=== PATIENT | female | born 1945 | race Hispanic/Latino ===

== ENCOUNTER 2018-02-26 14:03 | Inpatient (IN) | payer OTHER, MEDICARE ==
[~2018-02-26] VITALS: Ht 162.6 cm; Wt 61.8 kg
[2018-02-26 14:45] LABS: LYMPHOCYTES % (AUTO) 14.9 % (21.0-51.0); MEAN CORPUSCULAR HEMOGLOBIN 33.5 pg (27.0-33.0); MEAN CORPUSCULAR HGB CONC 34.5 g/dL (32.0-36.0); MEAN CORPUSCULAR VOLUME 97.1 fL (79-99); MONOCYTES % (AUTO) 18.6 % (3.0-13.0); NEUTROPHILS % (AUTO) 62.5 % (40.0-77.0); NUCLEATED RED BLOOD CELLS 0.1 % (0.0-0.19); PLATELET COUNT (AUTO) 95 K/uL (130-400); RED CELL DISTRIBUTION WIDTH 13.5 % (11.0-15.5); WHITE BLOOD COUNT (AUTO) 4.3 K/uL (4.8-10.8)
[2018-02-26 15:08] LABS: ALBUMIN 3.5 g/dL (3.5-5.0); BILIRUBIN,TOTAL 0.5 mg/dL (0.2-1.0); MAGNESIUM 2.4 mg/dL (1.80-2.40); POTASSIUM 4.7 mmol/L (3.5-5.1); TOTAL PROTEIN, SERUM 7.6 g/dL (6.0-8.3)
[2018-02-26 15:12] LABS: CREATININE 9.6 mg/dL (0.5-1.5)
[2018-02-26] MEDS ORDERED: SODIUM CHLORIDE 0.9% 500ML 500 ML IV ONE (15:57)
[2018-02-26] MEDS ORDERED: ONDANSETRON HCL 4 MG/2 ML VIAL ONE (15:57)
[2018-02-26 16:22] LABS: CREATINE KINASE, TOTAL 100 U/L (21-232); MYOGLOBIN 293 ng/mL (10-92); TROPONIN I < 0.04 ng/mL (0.00-0.06)
[2018-02-26] MEDS: PANTOPRAZOLE SODIUM 40 MG TABLET.DR PO SCH (16:54)
[2018-02-26] MEDS ORDERED: MORPHINE SULFATE 4 MG/1ML SYG ONE (17:19)
[2018-02-26] MEDS: INSULIN R PO SS1 SQ SCH (21:00)
[2018-02-26 22:05] VITALS: BP 160/70
[2018-02-26] MEDS ORDERED: ACYC800T PO (22:32)
[2018-02-26] MEDS ORDERED: LEVO88TA7 PO (22:32)
[2018-02-26] MEDS ORDERED: HYDR-4153 PO (22:32)
[2018-02-26] MEDS ORDERED: SEVE800T7 PO (22:32)
[2018-02-26] MEDS ORDERED: ASPI-555 PO (22:32)
[2018-02-26] MEDS ORDERED: UMEC1DIS IH (22:32)
[2018-02-26] MEDS ORDERED: LOSA100T29 PO (22:32)
[2018-02-26] MEDS ORDERED: BUSP5TAB3 PO (22:32)
[2018-02-26] MEDS ORDERED: SIMV40TA59 PO (22:32)
[2018-02-26] MEDS ORDERED: OMEP40CA37 PO (22:32)
[2018-02-26] MEDS ORDERED: AMLO5TAB2 PO (22:32)
[2018-02-26] MEDS ORDERED: CARV12.511 PO (22:32)
[2018-02-26] MEDS ORDERED: FOLI1TAB85 PO (22:32)
[2018-02-26] MEDS ORDERED: DICY10CA13 PO (22:32)
[2018-02-27] VITALS: BP 166/81
[2018-02-27] MEDS ORDERED: PHARMACY COMMUNICATION MISC SCH (00:15)
[2018-02-27 04:00] VITALS: BP 160/74
[2018-02-27] MEDS: INSULIN R PO SS1 SQ SCH ×4 (06:06→21:00)
[2018-02-27] MEDS ORDERED: 0.9% SODIUM CHLORIDE 250 ML IV BAG IV PRN (07:30)
[2018-02-27] MEDS ORDERED: ALBUMIN (HUMAN) 25% 100 ML IV PRN (07:30)
[2018-02-27] MEDS ORDERED: SODIUM CHLORIDE 0.9% 1000ML 1,000 ML IV PRN (07:30)
[2018-02-27 08:00] VITALS: BP 188/97
[2018-02-27] MEDS ORDERED: COMPOUND IV REFRIGERATED 1 EACH IVSOLN MISC PRN (10:00)
[2018-02-27] MEDS ORDERED: BUSPIRONE HCL 5 MG TABLET PO PRN (10:30)
[2018-02-27 11:00] VITALS: BP 184/92
[2018-02-27] MEDS: PANTOPRAZOLE SODIUM 40 MG TABLET.DR PO SCH (11:02)
[2018-02-27] MEDS: EPOETIN ALFA 2,000 UNIT/ML VIAL SQ SCH (11:03)
[2018-02-27] MEDS: SEVELAMER HCL 800 MG TABLET PO SCH ×2 (12:44→17:48)
[2018-02-27] MEDS: HYDRALAZINE HCL 25 MG TABLET PO SCH ×3 (12:44→21:09)
[2018-02-27 16:00] VITALS: BP 167/81
[2018-02-27] MEDS: DICYCLOMINE HCL 20 MG TAB PO SCH ×2 (17:47→21:08)
[2018-02-27] MEDS: VALACYCLOVIR HCL 500 MG TABLET PO SCH (17:47)
[2018-02-27 20:00] VITALS: BP 168/80
[2018-02-27] MEDS: CARVEDILOL 12.5 MG TABLET PO SCH (21:09)
[2018-02-27] MEDS: ATORVASTATIN CALCIUM 20 MG TABLET PO SCH (21:09)
[2018-02-28] VITALS (7 sets, daily range): BP systolic 121–148; BP diastolic 53–84
[2018-02-28] MEDS: INSULIN R PO SS1 SQ SCH ×4 (06:08→21:00)
[2018-02-28] MEDS: PANTOPRAZOLE SODIUM 40 MG TABLET.DR PO SCH ×2 (06:39)
[2018-02-28] MEDS: LEVOTHYROXINE 88 MCG TABLET PO SCH (06:40)
[2018-02-28] MEDS: **HM**Umeclidinium Brm/Vilanterol Tr (Anoro Ellipta 62.5-25 Mcg IH SCH (09:00)
[2018-02-28] MEDS: LOSARTAN 100 MG TABLET PO SCH (10:14)
[2018-02-28] MEDS: SEVELAMER HCL 800 MG TABLET PO SCH ×3 (10:14→17:19)
[2018-02-28] MEDS: HYDRALAZINE HCL 25 MG TABLET PO SCH ×3 (10:15→17:19)
[2018-02-28] MEDS: AMLODIPINE BESYLATE 5 MG TAB PO SCH (10:15)
[2018-02-28] MEDS: FOLIC ACID/VITAMIN B COMP W-C 1 MG CAPSULE PO SCH (10:15)
[2018-02-28] MEDS: ASPIRIN 81 MG EC TAB PO SCH (10:16)
[2018-02-28] MEDS: CARVEDILOL 12.5 MG TABLET PO SCH ×2 (10:16→23:04)
[2018-02-28] MEDS: DICYCLOMINE HCL 20 MG TAB PO SCH ×3 (10:16→23:04)
[2018-02-28] MEDS ORDERED: PREGABALIN 25 MG CAP ONE (11:12)
[2018-02-28] MEDS: PREGABALIN 25 MG CAP PO SCH ×2 (11:28→23:03)
[2018-02-28] MEDS ORDERED: BENZOCAINE/LANOLIN/ALOE VERA 60 ML AEROSOL TP PRN (14:15)
[2018-02-28] MEDS: VALACYCLOVIR HCL 500 MG TABLET PO SCH (17:19)
[2018-02-28] MEDS: ATORVASTATIN CALCIUM 20 MG TABLET PO SCH (23:03)
[2018-03-01] MEDS: HYDRALAZINE HCL 25 MG TABLET PO SCH ×4 (00:44→17:00)
[2018-03-01 04:00] VITALS: BP 120/70
[2018-03-01 05:27] LABS: POTASSIUM 5.5 mmol/L (3.5-5.1)
[2018-03-01 05:31] LABS: HEMATOCRIT 27.8 % (36-48); MEAN CORPUSCULAR VOLUME 97.3 fL (79-99); PLATELET COUNT (AUTO) 85 K/uL (130-400); RED BLOOD CELL COUNT(AUTO) 2.86 MIL/uL (4.00-5.50); RED CELL DISTRIBUTION WIDTH 13.2 % (11.0-15.5); WHITE BLOOD COUNT (AUTO) 5.8 K/uL (4.8-10.8)
[2018-03-01 05:36] LABS: CREATININE 11.5 mg/dL (0.5-1.5)
[2018-03-01] MEDS: INSULIN R PO SS1 SQ SCH ×3 (06:08→16:30)
[2018-03-01] MEDS: PANTOPRAZOLE SODIUM 40 MG TABLET.DR PO SCH (06:09)
[2018-03-01] MEDS: LEVOTHYROXINE 88 MCG TABLET PO SCH (06:10)
[2018-03-01] MEDS: SEVELAMER HCL 800 MG TABLET PO SCH ×3 (08:00→16:37)
[2018-03-01 08:39] VITALS: BP 125/69
[2018-03-01] MEDS: **HM**Umeclidinium Brm/Vilanterol Tr (Anoro Ellipta 62.5-25 Mcg IH SCH (09:00)
[2018-03-01 11:08] VITALS: BP 145/63
[2018-03-01] MEDS: PREGABALIN 25 MG CAP PO SCH (11:32)
[2018-03-01] MEDS: DICYCLOMINE HCL 20 MG TAB PO SCH ×2 (11:33→15:44)
[2018-03-01] MEDS: CARVEDILOL 12.5 MG TABLET PO SCH (11:33)
[2018-03-01] MEDS: AMLODIPINE BESYLATE 5 MG TAB PO SCH (11:33)
[2018-03-01] MEDS: ASPIRIN 81 MG EC TAB PO SCH (11:33)
[2018-03-01] MEDS: FOLIC ACID/VITAMIN B COMP W-C 1 MG CAPSULE PO SCH (11:34)
[2018-03-01] MEDS: LOSARTAN 100 MG TABLET PO SCH (11:34)
[2018-03-01 16:16] VITALS: BP 136/60
[2018-03-01] MEDS: VALACYCLOVIR HCL 500 MG TABLET PO SCH (16:37)
[2018-03-01] MEDS: EPOETIN ALFA 2,000 UNIT/ML VIAL SQ SCH (17:04)
== END 2018-03-01 19:00 | disposition home or self-care (01) | DRG 595 ==
LOC: EDH 14:03 → OBSVTOIN 16:05 → EDHIP 16:05 → 3BH 22:03
PROVIDERS: ADMIT Internal Medicine; ATTEND Internal Medicine
PROC: 5A1D70Z Performance of Urinary Filtration, Intermittent, Less than 6 Hours Per Day (ICD-10-PCS; principal; 2018-02-27)
PROC: 5A1D70Z Performance of Urinary Filtration, Intermittent, Less than 6 Hours Per Day (ICD-10-PCS; 2018-03-01)
DX: B02.9 Zoster without complications (principal); N18.6 End stage renal disease; I12.0 Hypertensive chronic kidney disease with stage 5 chronic kidney disease or end stage renal disease; E86.0 Dehydration; E78.5 Hyperlipidemia, unspecified; E03.9 Hypothyroidism, unspecified; Z83.3 Family history of diabetes mellitus; Z99.2 Dependence on renal dialysis; R50.9 Fever, unspecified; F41.9 Anxiety disorder, unspecified; Z90.710 Acquired absence of both cervix and uterus
CPT/HCPCS: 36415; 71045; 80048; 80053; 82550; 82553; 82948; 83735; 83874; 84484; 85025; 85027; 85651; 86141; 90935; 93005; J0885; J2270; J2405; J7040

== ENCOUNTER → 2018-06-22 | Outpatient (CLI) | payer OTHER, MEDICARE ==
[~2018-06-22] MED LIST: ACYC800T PO; AMLO5TAB7 PO; ASPI-555 PO; BUSP5TAB3 PO; CARV12.511 PO; DICY10CA13 PO; FOLI1TAB85 PO; HYDR-4153 PO; LEVO88TA7 PO; LOSA100T20 PO; OMEP40CA37 PO; REGADENOSON 0.4 MG/5 ML PF SYG IVP SCH; SEVE800T7 PO; SIMV40TA59 PO; UMEC1DIS IH
== END | disposition home or self-care (01) ==
LOC: SHCH 08:30
PROVIDERS: ATTEND Internal Medicine Cardiovascular Disease
DX: I50.42 Chronic combined systolic (congestive) and diastolic (congestive) heart failure (principal)
CPT/HCPCS: 78481; A9512

== ENCOUNTER → 2019-07-14 | Outpatient (CLI) | payer OTHER, MEDICARE ==
[~2019-07-14] MED LIST changes: -AMLO5TAB7 PO; +AMLO5TAB9 PO; -LOSA100T20 PO; +LOSA100T58 PO; +OMEP40CA13 PO; -OMEP40CA37 PO; -REGADENOSON 0.4 MG/5 ML PF SYG IVP SCH
== END | disposition home or self-care (01) ==
LOC: SHCH 09:43
PROVIDERS: ATTEND Internal Medicine Cardiovascular Disease
DX: I34.0 Nonrheumatic mitral (valve) insufficiency (principal)
CPT/HCPCS: 93306

== ENCOUNTER 2021-07-01 17:15 | Inpatient (IN) | payer OTHER, MEDICARE ==
[~2021-07-01] VITALS: Ht 162.6 cm; Wt 83.0 kg
[~2021-07-01 17:15] MED LIST changes: +ACYC-138 PO; -ACYC800T PO; +AMLO-257 PO; -AMLO5TAB9 PO; -ASPI-555 PO; +ASPI-556 PO; +CACL 1GM SYG IVP ONE; +DEXTROSE 50%-WATER 50 ML DISP.SYRIN IV ONE; +DOPAMINE HCL 400 MG/D5%-WATER 250 ML IV ONE; +EPINEPHRINE 1MG SYG 10ML IVP ONE; -OMEP40CA13 PO; +OMEP40CA21 PO; +SODIUM BICARB 8.4% 50ML SYRINGE IVP ONE; +VANCOMYCIN PROTOCOL PER PHARMACY IV SCH
[2021-07-01] MEDS ORDERED: BENZONATATE 100 MG CAPSULE PO PRN (18:30)
[2021-07-01] MEDS ORDERED: ALBUTEROL 0.083% 2.5 MG/3 ML INH IH PRN (19:00)
[2021-07-01 19:13] LABS: BASOPHILS % (AUTO) 0.3 % (0.0-5.0); EOSINOPHILS % (AUTO) 0.2 % (0.0-8.0); LYMPHOCYTES % (AUTO) 6.3 % (21.0-51.0); MEAN CORPUSCULAR HEMOGLOBIN 33.2 pg (27.0-33.0); MEAN CORPUSCULAR HGB CONC 32.7 g/dL (32.0-36.0); MEAN CORPUSCULAR VOLUME 101.6 fL (79-99); MONOCYTES % (AUTO) 9.8 % (3.0-13.0); NEUTROPHILS % (AUTO) 82.9 % (40.0-77.0); PLATELET COUNT (AUTO) 109 K/uL (130-400); RED BLOOD CELL COUNT(AUTO) 3.64 MIL/uL (4.00-5.50); RED CELL DISTRIBUTION WIDTH 13.7 % (11.0-15.5); WHITE BLOOD COUNT (AUTO) 12.3 K/uL (4.8-10.8)
[2021-07-01 19:37] LABS: POTASSIUM 3.9 mmol/L (3.5-5.1)
[2021-07-01 19:38] LABS: B-TYPE NATRIURETIC PEPTIDE 1550 pg/mL (0-100)
[2021-07-01 19:41] LABS: BILIRUBIN,TOTAL 0.5 mg/dL (0.2-1.0)
[2021-07-01 19:58] LABS: CRP QUANTITATIVE 288.2 mg/L (0.00-9.0)
[2021-07-01] MEDS ORDERED: CEFTRIAXONE 1G VIAL IVP ONE (20:00)
[2021-07-01] MEDS ORDERED: VANCOMYCIN 1G VIAL IVPB ONE (20:00)
[2021-07-01] MEDS ORDERED: CEFTRIAXONE 1G VIAL ONE (20:40)
[2021-07-01] MEDS ORDERED: NITROGLYCERIN 0.4 MG SL TAB SL PRN (21:00)
[2021-07-01] MEDS ORDERED: GUAIFENESIN-DM 200/20 MG 10 ML PO PRN (21:00)
[2021-07-01] MEDS ORDERED: IPRATROPIUM/ALBUTEROL SULFATE 3 ML SOLUTION IH PRN (21:00)
[2021-07-01] MEDS ORDERED: VANCOMYCIN KIT 1 GM/250 ML IV.KIT IV ONE (21:45)
[2021-07-01] MEDS ORDERED: 0.9% NACL 250ML 250 ML IV ONE (21:45)
[2021-07-01] MEDS ORDERED: PHARMACY COMMUNICATION MISC SCH (22:00)
[2021-07-01] MEDS ORDERED: RIFAMPIN 300 MG CAPSULE PO SCH (22:30)
[2021-07-01] MEDS ORDERED: AMIKACIN 500 MG IV SCH (22:30)
[2021-07-02] MEDS: IBUPROFEN 600 MG TABLET PO PRN (00:56)
[2021-07-02] MEDS ORDERED: FUROSEMIDE 40MG VIAL IV ONE (01:00)
[2021-07-02 01:43] LABS: BILIRUBIN,URINE NEGATIVE (NEGATIVE); COLOR,URINE YELLOW (YELLOW); GLUCOSE, URINE (UA) NEGATIVE (NEGATIVE); KETONES,URINE NEGATIVE (NEGATIVE); LEUKOCYTE ESTERASE ,URINE NEGATIVE (NEGATIVE); NITRATE,URINE NEGATIVE (NEGATIVE); OCCULT BLOOD,URINE TRACE-INTACT (NEGATIVE); PROTEIN,URINE 30 mg/dL (NEGATIVE); UROBILINOGEN,URINE 0.2 mg/dL (0.2-1.0)
[2021-07-02 01:44] LABS: APPEARANCE,URINE SLIGHTLY CLOUDY (CLEAR)
[2021-07-02 01:47] LABS: AMORPHOUS SEDIMENT,UR Rare /LPF (None Seen); BACTERIA,URINE Rare /HPF (None Seen); RBC,URINE 0-1 /HPF (0-1); SQUAMOUS EPITHELIAL CELL,UR Rare /HPF (0-2); WBC,URINE 0-1 /HPF (0-1)
[2021-07-02] MEDS: BACLOFEN 10 MG TABLET PO SCH ×4 (02:00→21:14)
[2021-07-02] MEDS ORDERED: GENTAMICIN PROTOCOL PER PHARMACY IV STA (02:07)
[2021-07-02] MEDS ORDERED: GENTAMICIN 80 MG/NS 100 ML PB 100 ML IV ONE (02:30)
[2021-07-02] MEDS ORDERED: 0.9%NACL 100ML 100 ML ONE (03:32)
[2021-07-02] MEDS ORDERED: GENTAMICIN SULFATE 80 MG/2 ML VIAL ONE (03:32)
[2021-07-02] MEDS ORDERED: METOPROLOL TARTRATE 1 MG/ML 5ML VIAL IV PRN (04:00)
[2021-07-02 05:16] LABS: ALBUMIN 2.6 g/dL (3.5-5.0); BASOPHILS % (AUTO) 0.4 % (0.0-5.0); BILIRUBIN,TOTAL 0.5 mg/dL (0.2-1.0); CREATININE 6.9 mg/dL (0.5-1.5); EOSINOPHILS % (AUTO) 0.8 % (0.0-8.0); HEMATOCRIT 32.7 % (36-48); LYMPHOCYTES % (AUTO) 11.6 % (21.0-51.0); MEAN CORPUSCULAR HGB CONC 32.4 g/dL (32.0-36.0); MEAN CORPUSCULAR VOLUME 101.9 fL (79-99); MONOCYTES % (AUTO) 12.5 % (3.0-13.0); NEUTROPHILS % (AUTO) 74.2 % (40.0-77.0); PLATELET COUNT (AUTO) 112 K/uL (130-400); POTASSIUM 4.2 mmol/L (3.5-5.1); RED BLOOD CELL COUNT(AUTO) 3.21 MIL/uL (4.00-5.50); RED CELL DISTRIBUTION WIDTH 13.8 % (11.0-15.5); TOTAL PROTEIN, SERUM 7.2 g/dL (6.0-8.3); WHITE BLOOD COUNT (AUTO) 10.2 K/uL (4.8-10.8)
[2021-07-02 06:20] VITALS: BP 120/79
[2021-07-02] MEDS ORDERED: LEVOTHYROXINE 75 MCG TABLET PO SCH (06:30)
[2021-07-02] MEDS ORDERED: FERS325 PO (06:36)
[2021-07-02] MEDS ORDERED: SERT-438 PO (06:36)
[2021-07-02] MEDS ORDERED: ATOR10 PO (06:36)
[2021-07-02] MEDS: LEVOTHYROXINE 88 MCG TABLET PO SCH (06:43)
[2021-07-02 08:00] VITALS: BP 122/61
[2021-07-02] MEDS ORDERED: CEFTRIAXONE 1G VIAL IVP SCH (09:00)
[2021-07-02] MEDS: LOSARTAN 100 MG TABLET PO SCH (09:00)
[2021-07-02] MEDS ORDERED: ENOXAPARIN SODIUM 30 MG/0.3 ML SQ SCH (09:00)
[2021-07-02] MEDS ORDERED: ASPIRIN 81MG CHEW TAB PO SCH (09:00)
[2021-07-02] MEDS: FAMOTIDINE 20MG VIAL IV SCH (09:00)
[2021-07-02] MEDS: FERROUS SULFATE 325 MG TABLET.DR PO SCH (09:00)
[2021-07-02] MEDS: SERTRALINE HCL 50 MG TABLET PO SCH (09:01)
[2021-07-02] MEDS: CARVEDILOL 12.5 MG TABLET PO SCH ×2 (09:01→21:13)
[2021-07-02 11:36] VITALS: BP 112/47
[2021-07-02] MEDS ORDERED: IPRATROPIUM/ALBUTEROL SULFATE 3 ML SOLUTION IH SCH (12:00)
[2021-07-02] MEDS: METOCLOPRAMIDE 5 MG TABLET PO SCH ×3 (14:55→21:14)
[2021-07-02] MEDS ORDERED: AMLODIPINE 5 MG TAB PO SCH (15:00)
[2021-07-02] MEDS ORDERED: ZOSYN 3.375GM +NS 50ML IV SCH (15:00)
[2021-07-02 16:00] VITALS: BP 125/54
[2021-07-02] MEDS ORDERED: 0.9%NACL 100ML 100 ML IV SCH (17:00)
[2021-07-02] MEDS ORDERED: COMPOUND IV REFRIGERATED 1 EACH IVSOLN MISC PRN ×2 (17:30)
[2021-07-02 20:00] VITALS: BP 119/55
[2021-07-02] MEDS ORDERED: VANCOMYCIN 500MG+NS 100ML IVPB IV SCH (21:00)
[2021-07-02] MEDS: ATORVASTATIN 20 MG TABLET PO SCH (21:13)
[2021-07-02] MEDS: BENZONATATE 100 MG CAPSULE PO PRN (21:14)
[2021-07-02] MEDS: APIXABAN 5 MG TABLET PO SCH (21:14)
[2021-07-02] MEDS: ZOSYN 3.375GM+NS 50ML 50 ML IV SCH (21:15)
[2021-07-03] VITALS (20 sets, daily range): BP systolic 116–178; BP diastolic 55–81
[2021-07-03] MEDS: DiphenhydrAMINE HCL 50 MG/ML VIAL IV PRN ×2 (04:28→21:06)
[2021-07-03 05:21] LABS: EOSINOPHILS % (AUTO) 2.7 % (0.0-8.0); HEMATOCRIT 38.7 % (36-48); LYMPHOCYTES % (AUTO) 11.8 % (21.0-51.0); MEAN CORPUSCULAR HEMOGLOBIN 32.3 pg (27.0-33.0); MEAN CORPUSCULAR HGB CONC 32.3 g/dL (32.0-36.0); MONOCYTES % (AUTO) 4.3 % (3.0-13.0); NEUTROPHILS % (AUTO) 80.6 % (40.0-77.0); PLATELET COUNT (AUTO) 147 K/uL (130-400); RED BLOOD CELL COUNT(AUTO) 3.87 MIL/uL (4.00-5.50); RED CELL DISTRIBUTION WIDTH 13.8 % (11.0-15.5); WHITE BLOOD COUNT (AUTO) 5.2 K/uL (4.8-10.8)
[2021-07-03 05:54] LABS: ALBUMIN 2.8 g/dL (3.5-5.0); BILIRUBIN,TOTAL 0.4 mg/dL (0.2-1.0); POTASSIUM 4.6 mmol/L (3.5-5.1); THYROID STIMULATING HORMONE 8.96 uIU/mL (0.36-3.74); TOTAL PROTEIN, SERUM 7.9 g/dL (6.0-8.3)
[2021-07-03 06:00] LABS: CREATININE 9.7 mg/dL (0.5-1.5)
[2021-07-03] MEDS: LEVOTHYROXINE 88 MCG TABLET PO SCH (06:41)
[2021-07-03] MEDS: METOCLOPRAMIDE 5 MG TABLET PO SCH ×4 (06:41→21:17)
[2021-07-03] MEDS: ZOSYN 3.375GM+NS 50ML 50 ML IV SCH ×2 (07:38→21:13)
[2021-07-03] MEDS: LOSARTAN 100 MG TABLET PO SCH (07:38)
[2021-07-03] MEDS: FERROUS SULFATE 325 MG TABLET.DR PO SCH (07:38)
[2021-07-03] MEDS: BACLOFEN 10 MG TABLET PO SCH ×3 (07:39→21:14)
[2021-07-03] MEDS: SERTRALINE HCL 50 MG TABLET PO SCH (07:39)
[2021-07-03] MEDS: CARVEDILOL 12.5 MG TABLET PO SCH ×2 (07:39→21:16)
[2021-07-03] MEDS: FAMOTIDINE 20MG VIAL IV SCH (07:41)
[2021-07-03] MEDS: APIXABAN 5 MG TABLET PO SCH ×2 (07:41→21:14)
[2021-07-03] MEDS ORDERED: CEFEPIME HCL 2 GM VIAL IVP SCH (09:00)
[2021-07-03] MEDS: CEFEPIME HCL 1 GM VIAL IVP SCH ×2 (09:29→21:14)
[2021-07-03] MEDS: AMLODIPINE 5 MG TAB PO SCH ×2 (15:00→18:37)
[2021-07-03] MEDS ORDERED: VANCOMYCIN 500MG+NS 100ML IVPB IV SCH (16:00)
[2021-07-03] MEDS: [UNRECOGNIZED DRUG - OTHER] IV SCH (17:03)
[2021-07-03] MEDS: GENTAMICIN SULFATE IV SCH (17:03)
[2021-07-03] MEDS ORDERED: 0.9%NACL 100ML 100 ML IV SCH (18:30)
[2021-07-03] MEDS: IBUPROFEN 600 MG TABLET PO PRN (18:39)
[2021-07-03] MEDS: ATORVASTATIN 20 MG TABLET PO SCH (21:14)
[2021-07-04] VITALS (8 sets, daily range): BP systolic 81–145; BP diastolic 41–78
[2021-07-04] MEDS: DiphenhydrAMINE HCL 50 MG/ML VIAL IV PRN ×2 (02:50→11:08)
[2021-07-04] MEDS: METOCLOPRAMIDE 5 MG TABLET PO SCH ×5 (06:49→22:21)
[2021-07-04] MEDS: LEVOTHYROXINE 125 MCG TABLET PO SCH (06:49)
[2021-07-04] MEDS: ZOSYN 3.375GM+NS 50ML 50 ML IV SCH (10:06)
[2021-07-04] MEDS: CEFEPIME HCL 1 GM VIAL IVP SCH ×2 (10:07→22:20)
[2021-07-04] MEDS: SERTRALINE HCL 50 MG TABLET PO SCH (10:07)
[2021-07-04] MEDS: LOSARTAN 100 MG TABLET PO SCH (10:07)
[2021-07-04] MEDS: APIXABAN 5 MG TABLET PO SCH ×3 (10:08→22:21)
[2021-07-04] MEDS: BACLOFEN 10 MG TABLET PO SCH ×3 (10:08→21:00)
[2021-07-04] MEDS: FERROUS SULFATE 325 MG TABLET.DR PO SCH (10:08)
[2021-07-04] MEDS: CARVEDILOL 12.5 MG TABLET PO SCH ×3 (10:09→22:21)
[2021-07-04] MEDS: FAMOTIDINE 20MG VIAL IV SCH (10:09)
[2021-07-04 10:15] LABS: HEMATOCRIT 37.6 % (36-48); MEAN CORPUSCULAR HEMOGLOBIN 32.7 pg (27.0-33.0); MEAN CORPUSCULAR VOLUME 99.2 fL (79-99); PLATELET COUNT (AUTO) 150 K/uL (130-400); RED BLOOD CELL COUNT(AUTO) 3.79 MIL/uL (4.00-5.50); RED CELL DISTRIBUTION WIDTH 13.6 % (11.0-15.5); WHITE BLOOD COUNT (AUTO) 9.5 K/uL (4.8-10.8)
[2021-07-04 10:24] LABS: CREATININE 7.4 mg/dL (0.5-1.5); POTASSIUM 4.3 mmol/L (3.5-5.1)
[2021-07-04] MEDS ORDERED: DiphenhydrAMINE HCL 50 MG/ML VIAL IV PRN (11:00)
[2021-07-04] MEDS ORDERED: SOLU-MEDROL 125MG VIAL IVP SCH (11:01)
[2021-07-04] MEDS ORDERED: SOLU-MEDROL 125MG VIAL ONE (11:04)
[2021-07-04 11:19] LABS: EOSINOPHILS % (MANUAL) 5 % (1-6); LYMPHOCYTES % (MANUAL) 1 % (22-44); MAN.DIFF COMMENT-IMPRESSION MANUAL DIFFERENTIAL; MONOCYTES % (MANUAL) 2 % (2-9); SEGMENTED NEUTROPHILS % 92 % (40-70)
[2021-07-04 11:22] LABS: PLATELET MORPHOLOGY COMMENT ADEQUATE
[2021-07-04] MEDS ORDERED: SOLU-MEDROL 125MG VIAL IM SCH (11:30)
[2021-07-04] MEDS ORDERED: PHARMACY COMMUNICATION MISC SCH (11:30)
[2021-07-04] MEDS: AMLODIPINE 5 MG TAB PO SCH ×2 (15:00→15:58)
[2021-07-04] MEDS: [UNRECOGNIZED DRUG - OTHER] IV SCH (17:06)
[2021-07-04] MEDS: GENTAMICIN SULFATE IV SCH (17:06)
[2021-07-04] MEDS: ONDANSETRON 4MG INJ IV PRN (18:51)
[2021-07-04] MEDS: BENZONATATE 100 MG CAPSULE PO PRN (22:20)
[2021-07-04] MEDS: ATORVASTATIN 20 MG TABLET PO SCH (22:21)
[2021-07-05] VITALS (19 sets, daily range): BP systolic 78–119; BP diastolic 38–88
[2021-07-05] MEDS: ONDANSETRON 4MG INJ IV PRN (01:42)
[2021-07-05] MEDS: DiphenhydrAMINE HCL 50 MG/ML VIAL IV PRN ×2 (01:57→21:32)
[2021-07-05 04:24] LABS: BASOPHILS % (AUTO) 0.1 % (0.0-5.0); EOSINOPHILS % (AUTO) 1.5 % (0.0-8.0); HEMATOCRIT 36.1 % (36-48); LYMPHOCYTES % (AUTO) 6.3 % (21.0-51.0); MEAN CORPUSCULAR HEMOGLOBIN 32.6 pg (27.0-33.0); MEAN CORPUSCULAR HGB CONC 32.7 g/dL (32.0-36.0); MEAN CORPUSCULAR VOLUME 99.7 fL (79-99); MONOCYTES % (AUTO) 3.8 % (3.0-13.0); NEUTROPHILS % (AUTO) 87.8 % (40.0-77.0); PLATELET COUNT (AUTO) 135 K/uL (130-400); RED BLOOD CELL COUNT(AUTO) 3.62 MIL/uL (4.00-5.50); RED CELL DISTRIBUTION WIDTH 13.4 % (11.0-15.5); WHITE BLOOD COUNT (AUTO) 10.4 K/uL (4.8-10.8)
[2021-07-05 04:43] LABS: ALBUMIN 2.5 g/dL (3.5-5.0); BILIRUBIN,TOTAL 0.5 mg/dL (0.2-1.0); POTASSIUM 4.3 mmol/L (3.5-5.1); TOTAL PROTEIN, SERUM 7.3 g/dL (6.0-8.3)
[2021-07-05 04:51] LABS: CREATININE 9.4 mg/dL (0.5-1.5)
[2021-07-05] MEDS: LEVOTHYROXINE 125 MCG TABLET PO SCH (06:26)
[2021-07-05] MEDS: METOCLOPRAMIDE 5 MG TABLET PO SCH ×5 (07:30→21:31)
[2021-07-05] MEDS: FERROUS SULFATE 325 MG TABLET.DR PO SCH ×2 (09:00→09:19)
[2021-07-05] MEDS: LOSARTAN 100 MG TABLET PO SCH ×2 (09:00→09:19)
[2021-07-05] MEDS ORDERED: FLUCONAZOLE 400 MG/NS 200 ML 200 ML IV SCH (09:00)
[2021-07-05] MEDS: CARVEDILOL 12.5 MG TABLET PO SCH ×3 (09:00→21:00)
[2021-07-05] MEDS: APIXABAN 5 MG TABLET PO SCH ×3 (09:00→21:31)
[2021-07-05] MEDS: SERTRALINE HCL 50 MG TABLET PO SCH ×2 (09:00→09:18)
[2021-07-05] MEDS: CEFEPIME HCL 1 GM VIAL IVP SCH ×2 (09:17→21:36)
[2021-07-05] MEDS: BACLOFEN 10 MG TABLET PO SCH (09:18)
[2021-07-05] MEDS: FAMOTIDINE 20MG VIAL IV SCH (09:19)
[2021-07-05] MEDS ORDERED: RENAL DOSE IV PRN (11:30)
[2021-07-05] MEDS ORDERED: COMPOUND IV MISC 1 EACH IVSOLN MISC PRN (13:30)
[2021-07-05] MEDS: AMLODIPINE 5 MG TAB PO SCH (15:00)
[2021-07-05] MEDS: VALPROIC ACID (AS SODIUM SALT) 250 MG in 0.9%NACL 100ML 100 ML IV SCH (15:04)
[2021-07-05] MEDS: MORPHINE 4 MG SYG IV PRN (18:54)
[2021-07-05] MEDS: ATORVASTATIN 20 MG TABLET PO SCH (21:31)
[2021-07-05] MEDS: BENZONATATE 100 MG CAPSULE PO PRN (21:32)
[2021-07-05] MEDS ORDERED: LEVOFLOXACIN 750 MG/D5W 150 ML 150 ML IV SCH (22:00)
[2021-07-06] VITALS (19 sets, daily range): BP systolic 109–145; BP diastolic 57–76
[2021-07-06] MEDS: VALPROIC ACID (AS SODIUM SALT) 250 MG in 0.9%NACL 100ML 100 ML IV SCH ×3 (00:17→20:18)
[2021-07-06] MEDS: MORPHINE 4 MG SYG IV PRN (00:17)
[2021-07-06] MEDS: LEVOTHYROXINE 125 MCG TABLET PO SCH (05:47)
[2021-07-06] MEDS: METOCLOPRAMIDE 5 MG TABLET PO SCH (05:47)
[2021-07-06 06:10] LABS: HEMATOCRIT 34.1 % (36-48); MEAN CORPUSCULAR HEMOGLOBIN 33.3 pg (27.0-33.0); MEAN CORPUSCULAR HGB CONC 32.8 g/dL (32.0-36.0); MEAN CORPUSCULAR VOLUME 101.5 fL (79-99); RED BLOOD CELL COUNT(AUTO) 3.36 MIL/uL (4.00-5.50); RED CELL DISTRIBUTION WIDTH 13.5 % (11.0-15.5); WHITE BLOOD COUNT (AUTO) 14.1 K/uL (4.8-10.8)
[2021-07-06 06:21] LABS: CREATININE 7.5 mg/dL (0.5-1.5); POTASSIUM 4.4 mmol/L (3.5-5.1)
[2021-07-06] MEDS: ACETAMINOPHEN 325 MG TAB PO PRN ×2 (08:48→17:28)
[2021-07-06] MEDS: LOSARTAN 100 MG TABLET PO SCH ×2 (10:10→16:56)
[2021-07-06] MEDS ORDERED: 0.9%NACL 1000ML 1,000 ML IV PRN (14:00)
[2021-07-06] MEDS: CARVEDILOL 12.5 MG TABLET PO SCH ×2 (16:56→20:18)
[2021-07-06] MEDS: FERROUS SULFATE 325 MG TABLET.DR PO SCH (16:56)
[2021-07-06] MEDS: APIXABAN 5 MG TABLET PO SCH ×2 (16:57→20:17)
[2021-07-06] MEDS: FAMOTIDINE 20MG VIAL IV SCH (16:57)
[2021-07-06] MEDS: SERTRALINE HCL 50 MG TABLET PO SCH (16:57)
[2021-07-06] MEDS: AMLODIPINE 5 MG TAB PO SCH (17:14)
[2021-07-06] MEDS: ATORVASTATIN 20 MG TABLET PO SCH (20:18)
[2021-07-07] VITALS: BP 122/58
[2021-07-07] MEDS: ACETAMINOPHEN 325 MG TAB PO PRN (00:27)
[2021-07-07 04:00] VITALS: BP 118/57
[2021-07-07 04:15] LABS: HEMATOCRIT 34.6 % (36-48); MEAN CORPUSCULAR HEMOGLOBIN 32.8 pg (27.0-33.0); MEAN CORPUSCULAR HGB CONC 32.7 g/dL (32.0-36.0); MEAN CORPUSCULAR VOLUME 100.3 fL (79-99); RED BLOOD CELL COUNT(AUTO) 3.45 MIL/uL (4.00-5.50); RED CELL DISTRIBUTION WIDTH 13.3 % (11.0-15.5)
[2021-07-07 04:30] LABS: CREATININE 5.2 mg/dL (0.5-1.5)
[2021-07-07] MEDS: LEVOTHYROXINE 125 MCG TABLET PO SCH (07:04)
[2021-07-07 08:00] VITALS: BP 115/47
[2021-07-07 08:14] LABS: HEPATITIS Bs ANTIGEN SCREEN P Negative (Negative)
[2021-07-07] MEDS: APIXABAN 5 MG TABLET PO SCH ×2 (09:00→22:15)
[2021-07-07] MEDS: CARVEDILOL 12.5 MG TABLET PO SCH ×2 (09:00→22:16)
[2021-07-07] MEDS: VALPROIC ACID (AS SODIUM SALT) 250 MG in 0.9%NACL 100ML 100 ML IV SCH ×2 (09:00→22:16)
[2021-07-07] MEDS: SERTRALINE HCL 50 MG TABLET PO SCH (10:00)
[2021-07-07] MEDS: FAMOTIDINE 20MG VIAL IV SCH (10:00)
[2021-07-07] MEDS: FERROUS SULFATE 325 MG TABLET.DR PO SCH (10:10)
[2021-07-07] MEDS: DEXAMETHASONE SOD PHOSPHATE 4 MG/ML 1ML VIAL IVP SCH (11:30)
[2021-07-07 12:00] VITALS: BP 127/59
[2021-07-07] MEDS ORDERED: KETOROLAC 15MG/ML VIAL (15MG/ML) ONE (12:48)
[2021-07-07] MEDS: AMLODIPINE 5 MG TAB PO SCH (15:00)
[2021-07-07 16:00] VITALS: BP 107/58
[2021-07-07 20:00] VITALS: BP 106/51
[2021-07-07] MEDS: ATORVASTATIN 20 MG TABLET PO SCH (22:15)
[2021-07-07] MEDS: LEVOFLOXACIN 500 MG/D5W 100 ML 100 ML IV SCH (22:21)
[2021-07-08] VITALS (20 sets, daily range): BP systolic 92–154; BP diastolic 45–69
[2021-07-08 04:46] LABS: HEMATOCRIT 34.2 % (36-48); MEAN CORPUSCULAR HEMOGLOBIN 32.5 pg (27.0-33.0); MEAN CORPUSCULAR HGB CONC 32.2 g/dL (32.0-36.0); MEAN CORPUSCULAR VOLUME 101.2 fL (79-99); RED BLOOD CELL COUNT(AUTO) 3.38 MIL/uL (4.00-5.50); RED CELL DISTRIBUTION WIDTH 13.1 % (11.0-15.5); WHITE BLOOD COUNT (AUTO) 9.6 K/uL (4.8-10.8)
[2021-07-08 05:04] LABS: POTASSIUM 4.5 mmol/L (3.5-5.1)
[2021-07-08 05:17] LABS: CREATININE 7.9 mg/dL (0.5-1.5)
[2021-07-08] MEDS: ONDANSETRON 4MG INJ IV PRN (06:40)
[2021-07-08] MEDS: LEVOTHYROXINE 125 MCG TABLET PO SCH (06:41)
[2021-07-08] MEDS: LOSARTAN 100 MG TABLET PO SCH (09:00)
[2021-07-08] MEDS: CARVEDILOL 12.5 MG TABLET PO SCH ×2 (09:00→22:05)
[2021-07-08] MEDS: FAMOTIDINE 20MG VIAL IV SCH (10:11)
[2021-07-08] MEDS: DEXAMETHASONE SOD PHOSPHATE 4 MG/ML 1ML VIAL IVP SCH (10:11)
[2021-07-08] MEDS: APIXABAN 5 MG TABLET PO SCH ×2 (10:11→22:05)
[2021-07-08] MEDS: FERROUS SULFATE 325 MG TABLET.DR PO SCH (10:11)
[2021-07-08] MEDS: SERTRALINE HCL 50 MG TABLET PO SCH (10:12)
[2021-07-08] MEDS: ACETAMINOPHEN 325 MG TAB PO PRN (10:12)
[2021-07-08] MEDS: VALPROIC ACID (AS SODIUM SALT) 250 MG in 0.9%NACL 100ML 100 ML IV SCH ×2 (11:18→22:05)
[2021-07-08] MEDS: AMLODIPINE 5 MG TAB PO SCH (14:18)
[2021-07-08] MEDS: ATORVASTATIN 20 MG TABLET PO SCH (22:05)
[2021-07-09] VITALS (7 sets, daily range): BP systolic 86–130; BP diastolic 48–88
[2021-07-09 04:47] LABS: HEMATOCRIT 30.2 % (36-48); MEAN CORPUSCULAR HEMOGLOBIN 33.1 pg (27.0-33.0); MEAN CORPUSCULAR HGB CONC 33.1 g/dL (32.0-36.0); RED BLOOD CELL COUNT(AUTO) 3.02 MIL/uL (4.00-5.50); RED CELL DISTRIBUTION WIDTH 13.2 % (11.0-15.5); WHITE BLOOD COUNT (AUTO) 11.6 K/uL (4.8-10.8)
[2021-07-09 05:27] LABS: ALBUMIN 2.6 g/dL (3.5-5.0); BILIRUBIN,TOTAL 0.5 mg/dL (0.2-1.0); CREATININE 5.8 mg/dL (0.5-1.5); POTASSIUM 4.7 mmol/L (3.5-5.1); TOTAL PROTEIN, SERUM 6.9 g/dL (6.0-8.3)
[2021-07-09] MEDS: LEVOTHYROXINE 125 MCG TABLET PO SCH (06:22)
[2021-07-09] MEDS: VALPROIC ACID (AS SODIUM SALT) 250 MG in 0.9%NACL 100ML 100 ML IV SCH ×3 (09:00→20:14)
[2021-07-09] MEDS: SERTRALINE HCL 50 MG TABLET PO SCH (09:36)
[2021-07-09] MEDS: FAMOTIDINE 20MG VIAL IV SCH (09:36)
[2021-07-09] MEDS: FERROUS SULFATE 325 MG TABLET.DR PO SCH (09:37)
[2021-07-09] MEDS: CARVEDILOL 12.5 MG TABLET PO SCH ×2 (09:37→20:15)
[2021-07-09] MEDS: APIXABAN 5 MG TABLET PO SCH ×2 (09:37→20:14)
[2021-07-09] MEDS: LOSARTAN 100 MG TABLET PO SCH (09:44)
[2021-07-09] MEDS: AMLODIPINE 5 MG TAB PO SCH (15:50)
[2021-07-09] MEDS: ATORVASTATIN 20 MG TABLET PO SCH (20:14)
[2021-07-09] MEDS: LEVOFLOXACIN 500 MG/D5W 100 ML 100 ML IV SCH (21:33)
[2021-07-10] VITALS (17 sets, daily range): BP systolic 81–114; BP diastolic 32–59
[2021-07-10] MEDS: ONDANSETRON 4MG INJ IV PRN ×2 (02:19→08:35)
[2021-07-10] MEDS ORDERED: DIPHENHYDRAMINE HCL 25 MG CAPSULE PO ONE (02:30)
[2021-07-10] MEDS ORDERED: DIPHENHYDRAMINE HCL 25 MG CAPSULE ONE (02:31)
[2021-07-10] MEDS: ACETAMINOPHEN 325 MG TAB PO PRN ×3 (02:33→13:49)
[2021-07-10 04:40] LABS: HEMATOCRIT 27.2 % (36-48); MEAN CORPUSCULAR HEMOGLOBIN 32.8 pg (27.0-33.0); MEAN CORPUSCULAR HGB CONC 33.1 g/dL (32.0-36.0); MEAN CORPUSCULAR VOLUME 99.3 fL (79-99); RED BLOOD CELL COUNT(AUTO) 2.74 MIL/uL (4.00-5.50); RED CELL DISTRIBUTION WIDTH 13.2 % (11.0-15.5); WHITE BLOOD COUNT (AUTO) 10.8 K/uL (4.8-10.8)
[2021-07-10 04:47] LABS: POTASSIUM 4.8 mmol/L (3.5-5.1)
[2021-07-10 04:52] LABS: CREATININE 8.1 mg/dL (0.5-1.5)
[2021-07-10] MEDS: LEVOTHYROXINE 125 MCG TABLET PO SCH (05:33)
[2021-07-10] MEDS: APIXABAN 5 MG TABLET PO SCH ×2 (08:36→20:03)
[2021-07-10] MEDS: SERTRALINE HCL 50 MG TABLET PO SCH (08:36)
[2021-07-10] MEDS: FERROUS SULFATE 325 MG TABLET.DR PO SCH (08:36)
[2021-07-10] MEDS: CARVEDILOL 12.5 MG TABLET PO SCH ×2 (08:37→20:03)
[2021-07-10] MEDS: VALPROIC ACID (AS SODIUM SALT) 250 MG in 0.9%NACL 100ML 100 ML IV SCH ×2 (08:37→20:03)
[2021-07-10] MEDS: LOSARTAN 100 MG TABLET PO SCH (08:37)
[2021-07-10] MEDS: FAMOTIDINE 20MG VIAL IV SCH (08:37)
[2021-07-10] MEDS ORDERED: ALBUMIN (HUMAN) 25% 100 ML IV PRN (10:30)
[2021-07-10] MEDS ORDERED: METOPROLOL TARTRATE 1 MG/ML 5ML VIAL IV ONE (13:00)
[2021-07-10] MEDS: AMLODIPINE 5 MG TAB PO SCH (13:46)
[2021-07-10] MEDS: ATORVASTATIN 20 MG TABLET PO SCH (20:03)
[2021-07-10] MEDS ORDERED: DEXTROSE 50%-WATER 50 ML DISP.SYRIN IV ONE (20:16)
[2021-07-10] MEDS ORDERED: TRAMADOL HCL 50 MG TABLET PO PRN (20:30)
[2021-07-10] MEDS ORDERED: GLUCAGON 1MG KIT 1 MG ML IM PRN (20:30)
[2021-07-10] MEDS: INSULIN HUMULIN R 100 UNIT/ML 3ML SQ SCH (21:00)
[2021-07-11] VITALS (31 sets, daily range): BP systolic 75–191; BP diastolic 32–94
[2021-07-11 04:30] LABS: MEAN CORPUSCULAR HEMOGLOBIN 33.1 pg (27.0-33.0); MEAN CORPUSCULAR HGB CONC 31.5 g/dL (32.0-36.0); MEAN CORPUSCULAR VOLUME 105.1 fL (79-99); NUCLEATED RED BLOOD CELLS 0.2 % (0.0-0.19); PLATELET COUNT (AUTO) 97 K/uL (130-400); RED BLOOD CELL COUNT(AUTO) 2.57 MIL/uL (4.00-5.50); RED CELL DISTRIBUTION WIDTH 13.5 % (11.0-15.5); WHITE BLOOD COUNT (AUTO) 20.5 K/uL (4.8-10.8)
[2021-07-11 04:57] LABS: ALBUMIN 2.9 g/dL (3.5-5.0); BILIRUBIN,TOTAL 1.5 mg/dL (0.2-1.0); CREATININE 7.2 mg/dL (0.5-1.5); MAGNESIUM 2.8 mg/dL (1.80-2.40); TOTAL PROTEIN, SERUM 5.9 g/dL (6.0-8.3)
[2021-07-11 05:07] LABS: BAND NEUTROPHILS % (MANUAL) 3 % (0-2); LYMPHOCYTES % (MANUAL) 13 % (22-44); MAN.DIFF COMMENT-IMPRESSION MANUAL DIFFERENTIAL; MONOCYTES % (MANUAL) 6 % (2-9); PLATELET MORPHOLOGY COMMENT SLIGHTLY DECREASED; SEGMENTED NEUTROPHILS % 78 % (40-70)
[2021-07-11] MEDS ORDERED: ALBUTEROL 0.083% 2.5 MG/3 ML INH IH SCH (06:23)
[2021-07-11] MEDS ORDERED: INSULIN HUMULIN R 100 UNIT/ML 3ML IV SCH (06:30)
[2021-07-11] MEDS: LEVOTHYROXINE 125 MCG TABLET PO SCH (06:30)
[2021-07-11] MEDS ORDERED: CALCIUM GLUC 1GM 1 GM in 0.9%NACL 100ML 100 ML IV SCH (06:35)
[2021-07-11 06:47] LABS: ABG BASE EXCESS -13.5 mmol/L (-2.0-3.0); ABG HCO3 11.4 mmol/L (21.0-28.0); ABG OXYGEN SATURATION 94.9 % (95.0-99.0); ABG PCO2 25 mmHg (32-45)
[2021-07-11] MEDS: DEXTROSE 50%-WATER 50 ML DISP.SYRIN IV SCH (06:54)
[2021-07-11] MEDS: SODIUM BICARB 50MEQ 50ML VIAL IV SCH (06:55)
[2021-07-11] MEDS: FUROSEMIDE 40MG VIAL IV SCH (07:05)
[2021-07-11] MEDS: KAYEXALATE 15GM/60ML PO SCH (07:23)
[2021-07-11] MEDS: INSULIN HUMULIN R 100 UNIT/ML 3ML SQ SCH ×4 (07:30→20:37)
[2021-07-11] MEDS ORDERED: SODIUM BICARB 50MEQ 50ML VIAL IV SCH ×2 (07:34→15:30)
[2021-07-11] MEDS: ONDANSETRON 4MG INJ IV PRN (07:34)
[2021-07-11 08:00] LABS: BILIRUBIN,DIRECT 0.9 mg/dL (0.0-0.3); BILIRUBIN,TOTAL 1.6 mg/dL (0.2-1.0)
[2021-07-11 08:01] LABS: THYROID STIMULATING HORMONE 2.33 uIU/mL (0.36-3.74)
[2021-07-11] MEDS: LACTULOSE 20 GM/30 ML UDCUP PO SCH ×2 (09:00→19:33)
[2021-07-11] MEDS: CARVEDILOL 12.5 MG TABLET PO SCH ×2 (09:00→19:33)
[2021-07-11] MEDS: SERTRALINE HCL 50 MG TABLET PO SCH (09:00)
[2021-07-11] MEDS: FERROUS SULFATE 325 MG TABLET.DR PO SCH (09:00)
[2021-07-11] MEDS: LOSARTAN 100 MG TABLET PO SCH (09:00)
[2021-07-11] MEDS: FAMOTIDINE 20MG VIAL IV SCH (09:00)
[2021-07-11 13:46] LABS: ALBUMIN 3.1 g/dL (3.5-5.0); PHOSPHORUS 13.8 mg/dL (2.5-4.9)
[2021-07-11 13:49] LABS: CREATININE 8.1 mg/dL (0.5-1.5)
[2021-07-11 14:59] LABS: ABG BASE EXCESS -18.6 mmol/L (-2.0-3.0); ABG HCO3 9.4 mmol/L (21.0-28.0); ABG OXYGEN SATURATION 98.4 % (95.0-99.0); ABG PCO2 30 mmHg (32-45)
[2021-07-11] MEDS: AMLODIPINE 5 MG TAB PO SCH (15:00)
[2021-07-11] MEDS ORDERED: NOREPINEPHRIN 8MG/250ML NS PMX 250 ML IV ONE (15:05)
[2021-07-11] MEDS: SODIUM BICARB 8.4% 50ML SYRING 150 MEQ in DEXTROSE 5%-WATER 1,000 ML IVP SCH (15:35)
[2021-07-11 15:38] LABS: BASOPHILS % (AUTO) 0.4 % (0.0-5.0); HEMATOCRIT 24.6 % (36-48); LYMPHOCYTES % (AUTO) 20.2 % (21.0-51.0); MEAN CORPUSCULAR HEMOGLOBIN 33.3 pg (27.0-33.0); MEAN CORPUSCULAR HGB CONC 29.7 g/dL (32.0-36.0); MEAN CORPUSCULAR VOLUME 112.3 fL (79-99); MONOCYTES % (AUTO) 8.5 % (3.0-13.0); NEUTROPHILS % (AUTO) 55.8 % (40.0-77.0); NUCLEATED RED BLOOD CELLS 1.3 % (0.0-0.19); PLATELET COUNT (AUTO) 55 K/uL (130-400); RED BLOOD CELL COUNT(AUTO) 2.19 MIL/uL (4.00-5.50); RED CELL DISTRIBUTION WIDTH 13.8 % (11.0-15.5); WHITE BLOOD COUNT (AUTO) 20.7 K/uL (4.8-10.8)
[2021-07-11 15:49] LABS: INR 2.64 (0.85-1.15); PROTHROMBIN TIME 26.3 SEC (9.6-11.6)
[2021-07-11 16:02] LABS: ALBUMIN 2.4 g/dL (3.5-5.0); BILIRUBIN,TOTAL 1.6 mg/dL (0.2-1.0); CREATININE 7.5 mg/dL (0.5-1.5)
[2021-07-11 16:06] LABS: PARTIAL THROMBOPLASTIN TIME 48.9 SEC (26.3-35.5)
[2021-07-11 16:07] LABS: ABG BASE EXCESS -6.6 mmol/L (-2.0-3.0); ABG HCO3 17.2 mmol/L (21.0-28.0); ABG OXYGEN SATURATION 97.9 % (95.0-99.0); ABG PCO2 28 mmHg (32-45)
[2021-07-11 16:12] LABS: POTASSIUM 6.3 mmol/L (3.5-5.1)
[2021-07-11] MEDS ORDERED: PHARMACY COMMUNICATION MISC SCH (17:30)
[2021-07-11] MEDS ORDERED: ATROPINE 1MG SYG IVP ONE (19:50)
[2021-07-11] MEDS: EPINEPHRINE PF 1MG AMP 10 MG in 0.9% NACL 250ML 250 ML IV SCH (20:26)
[2021-07-11] MEDS: PROPOFOL 1000 MG/100 ML 100 ML IV PRN (20:27)
[2021-07-11] MEDS: NOREPINEPHRINE BITARTRATE 8 MG in DEXTROSE 5%-WATER 250 ML IV PRN (20:48)
[2021-07-11] MEDS: VASOPRESSIN 20 UNITS in 0.9%NACL 100ML 100 ML IV SCH (21:07)
[2021-07-11 21:42] LABS: ABG HCO3 11.5 mmol/L (21.0-28.0); ABG OXYGEN SATURATION 98.4 % (95.0-99.0); ABG PCO2 23 mmHg (32-45)
[2021-07-11] MEDS ORDERED: SODIUM BICARB 50MEQ 50ML VIAL IV ONE (23:00)
[2021-07-11] MEDS: LEVOFLOXACIN 500 MG/D5W 100 ML 100 ML IV SCH (23:08)
[2021-07-12] VITALS (49 sets, daily range): BP systolic 88–165; BP diastolic 27–119
[2021-07-12] MEDS: PROPOFOL 1000 MG/100 ML 100 ML IV PRN ×2 (03:15→07:22)
[2021-07-12 05:53] LABS: BASOPHILS % (AUTO) 0.2 % (0.0-5.0); LYMPHOCYTES % (AUTO) 6.5 % (21.0-51.0); MEAN CORPUSCULAR VOLUME 106.3 fL (79-99); MONOCYTES % (AUTO) 4.6 % (3.0-13.0); NEUTROPHILS % (AUTO) 83.3 % (40.0-77.0); PLATELET COUNT (AUTO) 81 K/uL (130-400); RED BLOOD CELL COUNT(AUTO) 1.91 MIL/uL (4.00-5.50); RED CELL DISTRIBUTION WIDTH 13.9 % (11.0-15.5); WHITE BLOOD COUNT (AUTO) 18.3 K/uL (4.8-10.8)
[2021-07-12] MEDS: LEVOTHYROXINE 125 MCG TABLET PO SCH (05:53)
[2021-07-12] MEDS: INSULIN HUMULIN R 100 UNIT/ML 3ML SQ SCH ×4 (05:53→21:00)
[2021-07-12] MEDS: SODIUM BICARB 50MEQ 50ML VIAL IV SCH (05:54)
[2021-07-12] MEDS: DEXTROSE 50%-WATER 50 ML DISP.SYRIN IV SCH (05:54)
[2021-07-12] MEDS: KAYEXALATE 15GM/60ML PO SCH (05:54)
[2021-07-12] MEDS: FUROSEMIDE 40MG VIAL IV SCH (05:54)
[2021-07-12 06:02] LABS: HEMATOCRIT 20.3 % (36-48)
[2021-07-12 06:04] LABS: PARTIAL THROMBOPLASTIN TIME 46.1 SEC (26.3-35.5)
[2021-07-12 06:09] LABS: INR 4.51 (0.85-1.15); PROTHROMBIN TIME 42.9 SEC (9.6-11.6)
[2021-07-12 06:15] LABS: ALBUMIN 2.1 g/dL (3.5-5.0); BILIRUBIN,TOTAL 2.2 mg/dL (0.2-1.0); CREATININE 6.9 mg/dL (0.5-1.5); MAGNESIUM 2.4 mg/dL (1.80-2.40); PHOSPHORUS 11.1 mg/dL (2.5-4.9); POTASSIUM 4.8 mmol/L (3.5-5.1); TOTAL PROTEIN, SERUM 4.3 g/dL (6.0-8.3)
[2021-07-12 08:02] LABS: ABG BASE EXCESS -10.8 mmol/L (-2.0-3.0); ABG HCO3 13.2 mmol/L (21.0-28.0); ABG OXYGEN SATURATION 96.6 % (95.0-99.0); ABG PCO2 23 mmHg (32-45)
[2021-07-12] MEDS: VASOPRESSIN 20 UNITS in 0.9%NACL 100ML 100 ML IV SCH (08:18)
[2021-07-12] MEDS: CARVEDILOL 12.5 MG TABLET PO SCH ×2 (09:00→20:52)
[2021-07-12] MEDS: LOSARTAN 100 MG TABLET PO SCH (09:00)
[2021-07-12] MEDS: LACTULOSE 20 GM/30 ML UDCUP PO SCH ×2 (09:00→21:00)
[2021-07-12] MEDS: FAMOTIDINE 20MG VIAL IV SCH (09:00)
[2021-07-12 09:17] LABS: PROTHROMBIN TIME 42.1 SEC (9.6-11.6)
[2021-07-12 09:18] LABS: INR 4.42 (0.85-1.15)
[2021-07-12] MEDS: FERROUS SULFATE 325 MG TABLET.DR PO SCH (10:00)
[2021-07-12] MEDS: SERTRALINE HCL 50 MG TABLET PO SCH (10:00)
[2021-07-12] MEDS: SODIUM BICARB 8.4% 50ML SYRING 150 MEQ in DEXTROSE 5%-WATER 1,000 ML IVP SCH (14:11)
[2021-07-12] MEDS ORDERED: NOREPINEPHRIN 8MG/250ML NS PMX 250 ML IV ONE ×2 (14:51→21:18)
[2021-07-12] MEDS: AMLODIPINE 5 MG TAB PO SCH (15:00)
[2021-07-12] MEDS: NOREPINEPHRINE BITARTRATE 8 MG in DEXTROSE 5%-WATER 250 ML IV PRN (15:03)
[2021-07-12] MEDS: DEXTROSE 50%-WATER 50 ML DISP.SYRIN IV PRN ×2 (16:52→23:53)
[2021-07-12] MEDS: EPINEPHRINE PF 1MG AMP 10 MG in 0.9% NACL 250ML 250 ML IV SCH (20:37)
[2021-07-12] MEDS ORDERED: PANTOPRAZOLE 40 MG/VIAL IVP SCH (21:00)
[2021-07-12 22:49] LABS: HEMATOCRIT 26.7 % (36-48); MEAN CORPUSCULAR HEMOGLOBIN 33.2 pg (27.0-33.0); MEAN CORPUSCULAR HGB CONC 29.6 g/dL (32.0-36.0); MEAN CORPUSCULAR VOLUME 112.2 fL (79-99); NUCLEATED RED BLOOD CELLS 28.7 % (0.0-0.19); PLATELET COUNT (AUTO) 97 K/uL (130-400); RED BLOOD CELL COUNT(AUTO) 2.38 MIL/uL (4.00-5.50); RED CELL DISTRIBUTION WIDTH 17.2 % (11.0-15.5); WHITE BLOOD COUNT (AUTO) 23.3 K/uL (4.8-10.8)
[2021-07-12 23:45] LABS: BAND NEUTROPHILS % (MANUAL) 31 % (0-2); LYMPHOCYTES % (MANUAL) 27 % (22-44); MAN.DIFF COMMENT-IMPRESSION MANUAL DIFFERENTIAL; MONOCYTES % (MANUAL) 3 % (2-9); PLATELET MORPHOLOGY COMMENT DECREASED; SEGMENTED NEUTROPHILS % 39 % (40-70)
[2021-07-13] VITALS (11 sets, daily range): BP systolic 97–132; BP diastolic 30–80
[2021-07-13] MEDS: VASOPRESSIN 20 UNITS in 0.9%NACL 100ML 100 ML IV SCH (02:59)
[2021-07-13 05:06] LABS: HEMATOCRIT 23.8 % (36-48); MEAN CORPUSCULAR HEMOGLOBIN 33.8 pg (27.0-33.0); MEAN CORPUSCULAR HGB CONC 29.8 g/dL (32.0-36.0); MEAN CORPUSCULAR VOLUME 113.3 fL (79-99); NUCLEATED RED BLOOD CELLS 32.2 % (0.0-0.19); PLATELET COUNT (AUTO) 103 K/uL (130-400); RED CELL DISTRIBUTION WIDTH 17.8 % (11.0-15.5)
[2021-07-13 05:08] LABS: WHITE BLOOD COUNT (AUTO) 31.2 K/uL (4.8-10.8)
[2021-07-13 05:39] LABS: ALBUMIN 1.9 g/dL (3.5-5.0); ASPARTATE AMINOTRANSFERASE -3 U/L (10-37); BILIRUBIN,TOTAL 1.8 mg/dL (0.2-1.0); CHLORIDE 94 mmol/L (101-111); GLOMERULAR FILTR. RATE CALC 5 mL/min (>60); PHOSPHORUS 19.4 mg/dL (2.5-4.9); SODIUM SERUM 148 mmol/L (136-145); TOTAL PROTEIN, SERUM 4.3 g/dL (6.0-8.3)
[2021-07-13 05:40] LABS: INR > 7.00 (0.85-1.15); PARTIAL THROMBOPLASTIN TIME > 139.0 SEC (26.3-35.5); PROTHROMBIN TIME > 90.0 SEC (9.6-11.6)
[2021-07-13 05:48] LABS: CARBON DIOXIDE 5 mmol/L (21-32); GLUCOSE,RANDOM 18 mg/dL (70-105); POTASSIUM > 9.8 mmol/L (3.5-5.1)
[2021-07-13 05:49] LABS: ALANINE AMINOTRANSFERASE 4109 U/L (12-78); UREA NITROGEN, BLOOD 98 mg/dL (7-18)
[2021-07-13 06:01] LABS: BAND NEUTROPHILS % (MANUAL) 35 % (0-2); LYMPHOCYTES % (MANUAL) 12 % (22-44); MAN.DIFF COMMENT-IMPRESSION MANUAL DIFFERENTIAL; METAMYELOCYTES % 9 % (0-0); MONOCYTES % (MANUAL) 3 % (2-9); MYELOCYTES % 3 % (0-0); PLATELET MORPHOLOGY COMMENT SLIGHTLY DECREASED; PROMYELOCYTES % 1 (0-0); SEGMENTED NEUTROPHILS % 37 % (40-70)
[2021-07-13 07:17] LABS: HEPATITIS A ANTIBODY IGM Negative (Negative); HEPATITIS B CORE IGM Negative (Negative); HEPATITIS Bs ANTIGEN SCREEN P Negative (Negative)
== END 2021-07-13 05:23 | DRG 871 ==
LOC: EDH 17:15 → EDHIP 20:17 → 4DH 07-02 04:19 → 2CH 07-11 15:12
PROVIDERS: ADMIT Internal Medicine; ATTEND Internal Medicine
PROC: 5A1D70Z Performance of Urinary Filtration, Intermittent, Less than 6 Hours Per Day (ICD-10-PCS; 2021-07-03)
PROC: 5A1D70Z Performance of Urinary Filtration, Intermittent, Less than 6 Hours Per Day (ICD-10-PCS; 2021-07-06)
PROC: 5A1D70Z Performance of Urinary Filtration, Intermittent, Less than 6 Hours Per Day (ICD-10-PCS; 2021-07-08)
PROC: 5A1D70Z Performance of Urinary Filtration, Intermittent, Less than 6 Hours Per Day (ICD-10-PCS; 2021-07-10)
PROC: 5A1945Z Respiratory Ventilation, 24-96 Consecutive Hours (ICD-10-PCS; principal; 2021-07-11)
PROC: 0BH17EZ Insertion of Endotracheal Airway into Trachea, Via Natural or Artificial Opening (ICD-10-PCS; 2021-07-11)
PROC: 5A1D70Z Performance of Urinary Filtration, Intermittent, Less than 6 Hours Per Day (ICD-10-PCS; 2021-07-11)
PROC: 5A12012 Performance of Cardiac Output, Single, Manual (ICD-10-PCS; 2021-07-11)
PROC: 0W9D3ZZ Drainage of Pericardial Cavity, Percutaneous Approach (ICD-10-PCS; 2021-07-11)
PROC: 06HY33Z Insertion of Infusion Device into Lower Vein, Percutaneous Approach (ICD-10-PCS; 2021-07-11)
PROC: 30233N1 Transfusion of Nonautologous Red Blood Cells into Peripheral Vein, Percutaneous Approach (ICD-10-PCS; 2021-07-12)
DX: A41.50 Gram-negative sepsis, unspecified (principal); J15.1 Pneumonia due to Pseudomonas; I50.43 Acute on chronic combined systolic (congestive) and diastolic (congestive) heart failure; N18.6 End stage renal disease; G92.8 Other toxic encephalopathy; K72.00 Acute and subacute hepatic failure without coma; J15.6 Pneumonia due to other Gram-negative bacteria; J15.9 Unspecified bacterial pneumonia; Q23.1 Congenital insufficiency of aortic valve; J44.0 Chronic obstructive pulmonary disease with (acute) lower respiratory infection; I13.2 Hypertensive heart and chronic kidney disease with heart failure and with stage 5 chronic kidney disease, or end stage renal disease; E87.1 Hypo-osmolality and hyponatremia; E87.2 Acidosis; I31.3 Pericardial effusion (noninflammatory); I31.4 Cardiac tamponade; I69.354 Hemiplegia and hemiparesis following cerebral infarction affecting left non-dominant side; G93.1 Anoxic brain damage, not elsewhere classified; I31.2 Hemopericardium, not elsewhere classified; I47.2 Ventricular tachycardia; I42.0 Dilated cardiomyopathy; R79.89 Other specified abnormal findings of blood chemistry; I48.0 Paroxysmal atrial fibrillation; D63.1 Anemia in chronic kidney disease; Z66 Do not resuscitate; E03.9 Hypothyroidism, unspecified; E78.5 Hyperlipidemia, unspecified; F32.A Depression, unspecified; F41.9 Anxiety disorder, unspecified; I25.10 Atherosclerotic heart disease of native coronary artery without angina pectoris; G25.3 Myoclonus; I34.0 Nonrheumatic mitral (valve) insufficiency; K21.9 Gastro-esophageal reflux disease without esophagitis; K80.20 Calculus of gallbladder without cholecystitis without obstruction; M48.02 Spinal stenosis, cervical region; M54.10 Radiculopathy, site unspecified; K76.0 Fatty (change of) liver, not elsewhere classified; Z77.22 Contact with and (suspected) exposure to environmental tobacco smoke (acute) (chronic); E87.5 Hyperkalemia; Z20.822 Contact with and (suspected) exposure to COVID-19; T42.8X5A Adverse effect of antiparkinsonism drugs and other central muscle-tone depressants, initial encounter; B96.5 Pseudomonas (aeruginosa) (mallei) (pseudomallei) as the cause of diseases classified elsewhere; I46.9 Cardiac arrest, cause unspecified; M50.221 Other cervical disc displacement at C4-C5 level; R57.0 Cardiogenic shock; Y95 Nosocomial condition; Z99.2 Dependence on renal dialysis; Z79.01 Long term (current) use of anticoagulants; Z79.82 Long term (current) use of aspirin; Z87.11 Personal history of peptic ulcer disease; Z90.710 Acquired absence of both cervix and uterus; Z88.5 Allergy status to narcotic agent; Z88.8 Allergy status to other drugs, medicaments and biological substances; Y92.89 Other specified places as the place of occurrence of the external cause; Z83.3 Family history of diabetes mellitus; Z80.9 Family history of malignant neoplasm, unspecified
CPT/HCPCS: 31500; 36415; 36430; 36600; 70450; 70490; 70551; 71045; 71250; 72125; 72141; 74176; 76700; 76705; 78582; 80048; 80053; 80069; 80074; 80076; 80164; 80202; 81001; 82140; 82435; 82550; 82607; 82746; 82803; 82947; 82948; 83605; 83735; 83874; 83880; 84100; 84132; 84145; 84295; 84443; 84484; 85018; 85025; 85027; 85378; 85610; 85730; 86140; 86704; 86706; 86850; 86900; 86901; 86922; 87040; 87071; 87077; 87088; 87186; 87205; 87340; 87635; 87804; 90935; 92950; 93005; 93306; 93356; 94002; 94003; 97039; A9540; A9558; C9113; G0378; J0171; J0461; J0610; J0692; J0696; J1100; J1200; J1265; J1450; J1580; J1650; J1885; J1940; J1956; J2270; J2405; J2543; J2704; J2930; J3370; J3490; J7050; J7070; P9016; P9046; Q0163